=== PATIENT | female | born 1970 | race African-American/Black ===

== ENCOUNTER 2017-08-08 06:09 | Emergency (ER) | payer OTHER ==
[~2017-08-08] VITALS: Ht 170.2 cm; Wt 108.0 kg
[~2017-08-08 06:09] MED LIST: ANAPROX PO; ANTIVERT25 MG PO; NUVIGIL PO; ZOFRAN ODT4 MG PO
[2017-08-08] MEDS ORDERED: MULTI VITAMIN1 EACH PO (06:25)
[2017-08-08] MEDS ORDERED: VITAMINC500 PO (06:26)
[2017-08-08] MEDS ORDERED: VITAMIN B12 PO (06:26)
[2017-08-08] MEDS ORDERED: [UNRECOGNIZED DRUG - OTHER] PO (06:27)
[2017-08-08] MEDS ORDERED: OMEGA-31000 MG PO (06:28)
[2017-08-08 07:02] VITALS: BP 167/95
== END 2017-08-08 07:03 | disposition home or self-care (01) ==
LOC: ER 06:09
DX: R20.0 Anesthesia of skin (principal); J34.89 Other specified disorders of nose and nasal sinuses; G47.30 Sleep apnea, unspecified; Z88.0 Allergy status to penicillin

== ENCOUNTER 2017-08-20 02:03 | Emergency (ER) | payer OTHER ==
[~2017-08-20] VITALS: Ht 170.2 cm; Wt 106.1 kg
--- NOTE | ~2017-08-20 | EKG ---
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: Dipak LINK : 1970 Requested By: Rachna Davison Order Number: [id number] MD: Luis Samuel Measurements Intervals [place] Rate: 43 P: -19 MO: 164 QRS: 7 QRSD: 91 T: 11 QT: 501 QTc: 424 Interpretive Statements Sinus bradycardia Nonspecific T wave abnormality Compared to ECG 10/18/2016 00:22:54 No significant change was found Electronically Signed On 08-20-2017 9:02:03 [employer]AL [employer] by Luis Samuel [email or web address] <ELECTRONICALLY SIGNED> By: Luis Samuel MD, [facility] 08/20/17 [id number] Luis Samuel MD, FACC /EPI
[~2017-08-20 02:03] MED LIST changes: +MULTI VITAMIN1 EACH PO; +OMEGA-31000 MG PO; +VITAMIN B12 PO; +VITAMINC500 PO; +[UNRECOGNIZED DRUG - OTHER] PO
[2017-08-20 02:35] LABS: URINE BILIRUBIN NEGATIVE (Negative); URINE BLOOD 2+ (Negative); URINE CLARITY CLEAR; URINE COLOR YELLOW; URINE GLUCOSE-RANDOM* NEGATIVE (Negative); URINE KETONES NEGATIVE (Negative); URINE LEUKOCYTES NEGATIVE (Negative); URINE NITRITE NEGATIVE (Negative); URINE PROTEIN (DIPSTICK) NEGATIVE (Negative); URINE SPECIFIC GRAVITY 1.025 (1.005-1.035); URINE UROBILINOGEN 0.2 E.U./dl (0.2-1.0)
[2017-08-20 02:48] LABS: MUCUS 0-3 Light strn/LPF (None Seen); SQUAMOUS >10 Many /LPF (0-3)
[2017-08-20 02:49] LABS: CASTS None Seen /LPF (None Seen); CRYSTALS None Seen /LPF (None Seen); URINE RBC 0-2 Rare /HPF (0-2); URINE WBC 0-5 Rare /HPF (0-5)
[2017-08-20 02:51] LABS: ANION GAP 7 mmol/L (7-16); BUN 18 mg/dL (7-18); CALCIUM 8.8 mg/dL (8.5-10.1); CHLORIDE 105 mmol/L (98-107); CO2 25 mmol/L (21-32); GLUCOSE 142 mg/dL (74-106); POTASSIUM 3.7 mmol/L (3.5-5.1); SODIUM 137 mmol/L (136-145)
[2017-08-20 02:57] LABS: ALBUMIN 3.3 g/dL (3.4-5.0); DIRECT BILIRUBIN < 0.1 mg/dL (<0.1-0.3); LIPASE 123 U/L (73-393); SGOT 16 U/L (15-37); SGPT 24 U/L (30-65); TOTAL BILIRUBIN 0.3 mg/dL (<0.1-1.0); TOTAL PROTEIN 6.9 g/dL (6.4-8.2)
[2017-08-20 02:59] LABS: ABSOLUTE NEUTROPHILS 6.7 thou/uL (1.4-8.2); BASOPHILS 0.8 % (0.0-2.0); EOSINOPHILS 1.8 % (0.0-3.0); HEMATOCRIT 39.2 % (37.0-47.0); HEMOGLOBIN 12.9 gm/dL (12.0-15.0); LYMPHOCYTES 30.8 % (24.0-44.0); MCH 27.2 pg (26.0-34.0); MCHC 32.8 g/dL (28.0-37.0); MONOCYTES 7.5 % (1.0-8.0); PLATELET COUNT 338 thou/uL (150-400); POLYS 59.1 % (36.0-66.0); RBC 4.73 mil/uL (4.20-5.00); RDW 14.8 % (10.5-14.5); WBC 11.4 thou/uL (4.0-11.0)
== END 2017-08-20 03:50 | disposition home or self-care (01) ==
LOC: ER 02:03
PROVIDERS: Emergency Medicine
DX: G62.9 Polyneuropathy, unspecified (principal); M79.604 Pain in right leg; M79.605 Pain in left leg; G25.81 Restless legs syndrome; R00.1 Bradycardia, unspecified; R03.0 Elevated blood-pressure reading, without diagnosis of hypertension; G47.30 Sleep apnea, unspecified; Z88.0 Allergy status to penicillin

== ENCOUNTER 2019-12-06 12:18 | Emergency (ER) | payer BC, OTHER ==
[~2019-12-06] VITALS: Ht 170.2 cm; Wt 106.6 kg
[2019-12-06] MEDS ORDERED: NORCO 5-325 TA1 EAC1 PO (12:58)
[2019-12-06 13:29] VITALS: BP 142/52
== END 2019-12-06 13:30 | disposition home or self-care (01) ==
LOC: ER 12:18
DX: S83.241A Other tear of medial meniscus, current injury, right knee, initial encounter (principal); Z98.51 Tubal ligation status; Z79.899 Other long term (current) drug therapy; Z88.0 Allergy status to penicillin; X50.1XXA Overexertion from prolonged static or awkward postures, initial encounter; Y93.89 Activity, other specified; Y92.098 Other place in other non-institutional residence as the place of occurrence of the external cause; Y99.8 Other external cause status